=== PATIENT | female | born 1980 | race Caucasian/White ===

== ENCOUNTER 2017-05-19 20:11 | Emergency (ER) | payer OTHER ==
[~2017-05-19] VITALS: Ht 162.6 cm; Wt 100.0 kg
[2017-05-19] MEDS ORDERED: CIPR-249 PO (20:23)
[2017-05-19] MEDS ORDERED: METR1TAB66 PO (20:23)
[2017-05-19 21:27] LABS: CONTROL LINE UCG INT CTR LINE PRESENT
[2017-05-19 21:29] LABS: BASO # 0.1 10^3/uL (0.0-0.2); BASO % 0.7 % (0.0-1.0); EOS # 0.3 10^3/uL (0.0-0.50); EOS % 2.6 % (0.0-3.0); IMMATURE GRANULOCYTE % 0.5 % (0-0); LYMPH # 3.2 10^3/uL (1.5-4.5); LYMPH % 24.5 % (24.0-44.0); MEAN CORPUSCULAR HEMOGLOBIN 29.6 pg (27.0-33.0); MEAN CORPUSCULAR HGB CONC 34.2 g/dl (32.0-36.5); MEAN CORPUSCULAR VOLUME 86.6 fl (80.0-96.0); MONO # 0.6 10^3/uL (0.0-0.8); MONO % 4.5 % (0.0-5.0); NEUTROPHILS # 8.9 10^3/uL (1.8-7.7); NEUTROPHILS % 67.2 % (36.0-66.0); PLATELET COUNT, AUTOMATED 303 10^3/uL (150-450); RED CELL DISTRIBUTION WIDTH 13.3 % (11.5-14.5); WHITE BLOOD COUNT 13.2 10^3/uL (4.0-10.0)
[2017-05-19 21:54] LABS: ALBUMIN 3.8 GM/DL (3.2-5.2); ALBUMIN/GLOBULIN RATIO 0.97 (1.00-1.93); ALKALINE PHOSPHATASE 54 U/L (45-117); ALT/SGPT 24 U/L (12-78); ANION GAP 7 MEQ/L (8-16); AST/SGOT 17 U/L (15-37); BILIRUBIN,DIRECT < 0.1 MG/DL (0.0-0.2); BILIRUBIN,TOTAL 0.2 MG/DL (0.2-1.0); BLOOD UREA NITROGEN 9 MG/DL (7-18); CALCIUM LEVEL 8.7 MG/DL (8.5-10.1); CARBON DIOXIDE LEVEL 25 MEQ/L (21-32); CHLORIDE LEVEL 103 MEQ/L (98-107); CREATININE FOR GFR 0.89 MG/DL (0.55-1.02); GLOMERULAR FILTRATION RATE > 60.0 (>60); GLUCOSE, FASTING 97 MG/DL (70-105); POTASSIUM SERUM 3.8 MEQ/L (3.5-5.1); SODIUM LEVEL 135 MEQ/L (136-145); TOTAL PROTEIN 7.7 GM/DL (6.4-8.2)
[2017-05-19 22:20] VITALS: BP 131/85
--- NOTE | 2017-05-20 02:12 | REP ---
Clinical: Bloating and abdominal pain. Technique: Upright view of the lower chest/abdomen with supine views of the abdomen and pelvis. Findings: Upright view demonstrates no basilar atelectasis/opacity or free air below the diaphragm to suspect pneumoperitoneum. Supine and upright views of the abdomen and pelvis demonstrate nonspecific bowel gas pattern without obstruction or perforation. No organomegaly. No abnormal calcifications. Skeletal structures normal for age. The patient is status post tubal ligation with two Filshie clips identified in the pelvis. Impression: Nonspecific bowel gas pattern. Signed by Jayant Burdick MD 05/20/2017 02:03 A
== END 2017-05-19 22:28 | disposition home or self-care (01) ==
LOC: M ED 20:11
DX: K57.30 Diverticulosis of large intestine without perforation or abscess without bleeding (principal); K59.00 Constipation, unspecified

== ENCOUNTER → 2018-05-14 | Outpatient (REF) | payer OTHER | LOC: M SFHCLERA 11:01 | DX: J02.9 Acute pharyngitis, unspecified (principal) ==

== ENCOUNTER 2020-05-08 11:27 | Emergency (ER) | payer OTHER ==
[~2020-05-08] VITALS: Ht 165.1 cm; Wt 115.8 kg
[~2020-05-08 11:27] MED LIST: CIPR-249 PO; METR-265 PO
[2020-05-08] MEDS ORDERED: DOXY-350 PO (11:40)
[2020-05-08] MEDS ORDERED: ISOVUE-370 76% 100ML VIAL As Ordered ONE (12:27)
[2020-05-08 12:40] LABS: BASO # 0.1 10^3/uL (0.0-0.2); BASO % 0.6 % (0.0-1.0); EOS # 0.4 10^3/uL (0.0-0.5); EOS % 3.1 % (0.0-3.0); HEMATOCRIT 40.2 % (36.0-47.0); HEMOGLOBIN 13.3 g/dl (12.0-15.5); LYMPH # 2.3 10^3/uL (1.5-5.0); LYMPH % 19.2 % (24.0-44.0); MEAN CORPUSCULAR HEMOGLOBIN 27.9 pg (27.0-33.0); MEAN CORPUSCULAR HGB CONC 33.1 g/dl (32.0-36.5); MEAN CORPUSCULAR VOLUME 84.5 fl (80.0-96.0); MONO # 0.6 10^3/uL (0.0-0.8); MONO % 5.2 % (0.0-5.0); NEUTROPHILS # 8.5 10^3/uL (1.5-8.5); NEUTROPHILS % 71.3 % (36.0-66.0); PLATELET COUNT, AUTOMATED 255 10^3/uL (150-450); RED BLOOD COUNT 4.76 10^6/uL (4.00-5.40); WHITE BLOOD COUNT 11.9 10^3/uL (4.0-10.0)
[2020-05-08 13:08] LABS: ALBUMIN 3.8 GM/DL (3.2-5.2); ALT/SGPT 26 U/L (12-78); BILIRUBIN,DIRECT < 0.1 MG/DL (0.0-0.2); BILIRUBIN,TOTAL 0.3 MG/DL (0.2-1.0); LIPASE 138 U/L (73-393); TOTAL PROTEIN 7.5 GM/DL (6.4-8.2)
--- NOTE | 2020-05-08 13:37 | REPVR ---
PROCEDURE INFORMATION: Exam: CT Abdomen And Pelvis With Contrast Exam date and time: 05/08/2020 12:30 PM Age: 40 years old Clinical indication: Abdominal pain; Generalized; Additional info: Abd pain with HX of diverticulitis TECHNIQUE: Imaging protocol: Computed tomography of the abdomen and pelvis with intravenous contrast. Radiation optimization: All CT scans at this facility use at least one of these dose optimization techniques: automated exposure control; mA and/or kV adjustment per patient size (includes targeted exams where dose is matched to clinical indication); or iterative reconstruction. Contrast material: ISOVUE 370; Contrast volume: 100 ml; Contrast route: INTRAVENOUS (IV); COMPARISON: None FINDINGS: Lungs: Mild interstitial prominence . 3 mm left lower lobe nodule (series 401: Image 34). For patients at low risk (minimal or absent history of smoking and of other known risk factors), no routine follow-up is indicated. For patients at high risk (history of smoking or of other known risk factors), consider optional CT Chest at 12 months. (Reference: [place]) Liver: Fatty infiltration of the liver. 10 mm hepatic cyst. Gallbladder and bile ducts: No cholelithiasis or biliary ductal dilatation. Pancreas: No pancreatic mass or ductal dilatation. Spleen: Enlarged spleen measuring 13.9 cm in length. Adrenals: Unremarkable adrenals. Kidneys and ureters: Two adjacent 1 mm nonobstructing left renal calculi. 5 mm nodular hypodensity in the lower pole the left kidney which is too small to accurately characterize. Stomach and bowel: Mild wall thickening in the nondistended stomach. Prominent stool and scattered diverticula. Mild small bowel dilatation in the distal ileum. Wall thickening , infiltration of pericolonic fat, trace fluid, and fascial thickening about the splenic flexure and proximal descending colon, consistent with acute diverticulitis. Appendix: No acute appendicitis. Intraperitoneal space: No dependent free fluid in the pelvis. Vasculature: Normal caliber of the abdominal aorta. Lymph nodes: Subcentimeter lymph nodes. Urinary bladder: Mild wall thickening in the nondistended bladder. Reproductive: 2.9 cm fibroid in the inferior uterus. 2.3 cm left ovarian cyst. Surgical clips in the right adnexa and left anterolateral pelvis. Endocervical air. Bones/joints: Mild degenerative change . Soft tissues: Small fat containing umbilical hernia. IMPRESSION: 1. Wall thickening , infiltration of pericolonic fat, trace fluid, and fascial thickening about the splenic flexure and proximal descending colon, consistent with acute diverticulitis. 2. Two adjacent 1 mm nonobstructing left renal calculi. 3. Additional findings as described above. COMMENTS: Consistent with the [employer]'s Incidental Findings Committee white paper (J Am Lissette Radiol 2018): Any incidental renal lesion less than 1 cm or classified as too small to characterize, or any incidental cystic renal lesion characterized as simple-appearing, is likely benign. No follow-up imaging is recommended for these lesions per consensus recommendations based on imaging criteria. Electronically signed by: Ata Byrd On 05/08/2020 13:37:18 PM
[2020-05-08] MEDS ORDERED: CIPR-249 PO (13:47)
[2020-05-08] MEDS ORDERED: FLAG500T PO (13:47)
[2020-05-08 14:00] VITALS: BP 127/85
== END 2020-05-08 14:08 | disposition home or self-care (01) ==
LOC: M ED 11:27
DX: K57.30 Diverticulosis of large intestine without perforation or abscess without bleeding (principal); R91.1 Solitary pulmonary nodule; N20.0 Calculus of kidney; Z79.2 Long term (current) use of antibiotics; Z88.0 Allergy status to penicillin
CPT/HCPCS: 36415; 74177; 80047; 80076; 81001; 83690; 84702; 85025; 99284; Q9967

== ENCOUNTER → 2020-06-10 | Outpatient (CLI) | payer OTHER ==
[~2020-06-10] MED LIST changes: +DOXY-350 PO; +FLAG500T PO
--- NOTE | 2020-06-10 15:55 | REP ---
INDICATION: CHRONIC MAXILLARY SINUSITUS. COMPARISON: NONE. TECHNIQUE: Helical scanning is acquired and 2 mm axial images re-formatted. Coronal MPR images are generated and reviewed. FINDINGS: Frontal sinuses are clear. Ethmoid sinuses are clear bilaterally. Sphenoid aeration shows no evidence of mucosal thickening or opacification. Mastoid aeration is normal and symmetric. The maxillary sinuses are clear as well. Bony nasal septum bows somewhat to the right without a visible septal beak. Nasal turbinates soft tissues are unremarkable. Ostiomeatal complexes are patent bilaterally. Nasal ethmoid recesses are clear. There is no evidence of intraorbital or deep facial soft tissue lesion. The visualized intracranial structures are unremarkable. IMPRESSION: There is no CT evidence of paranasal sinus disease. There is rightward bowing of the nasal septum without septal beak. Otherwise negative. <Electronically signed by Gio Haas > 06/10/20 [id number]
== END ==
LOC: M RAD 14:58
PROVIDERS: ATTEND Otolaryngology
DX: J32.0 Chronic maxillary sinusitis (principal)

== ENCOUNTER 2020-09-05 11:18 | Day surgery (SDC) | payer OTHER ==
[~2020-09-05] VITALS: Ht 165.1 cm; Wt 116.3 kg
[~2020-09-05 11:18] MED LIST changes: +CLAR10CA3 PO; +FLUN25SP; +IPRA3SP; +NS 1,000 ML IV ONE; +OMEP10CASR PO; +TOLT2CAP4 PO; +VITMTA PO
--- OUTSIDE RECORDS SUMMARY | 2020-09-05 11:23 | CCD | Continuity of Care Document ---
Author Author Bekah APODACA M.D. Organization Unknown Address [address] [place] [address] Phone [phone] Care Team Providers Care Curbstone Setter Name Role Phone Lj Gan MD [facility] [phone] Problems Active Problems Provider Date Gastroesophageal reflux disease Kostas Apodaca M.D. Ons et: 08/16/2020 Social History Type Date Description Comments Sex Unknown ETOH Use Denies alcohol use Tobacco Use Start: Unknown End: Unknown Patient is a former smoker QUIT 2017 Allergies, Adverse Reactions, Alerts Active Allergies Reaction Severity Comments Date Penicillin V 08/16/2020 Medications Active Medications SIG Qnty Indications Ordering Provide r Date Sutab [id number] Tablets as directed 1box Kostas Apodaca M.D. 08/16/[address] 1 cap by mouth every morning Unknown Claritin 10mg Tablets Unknown Immunizations Description No Information Available Vital Signs Date Vital Result Comment 08/16/2020 11:45am Height 65 inches 5'5" Weight 258.00 lb BP Systolic 130 mmHg BP Diastolic 84 mmHg Heart Rate 78 /min BMI (Body Mass Index) 42.9 kg/m2 Weight 117.029 kg Body Temperature 97.9 F Results Description No Information Available Procedures Description No Information Available Medical Devices Description No Information Available Encounters Description No Information Available Assessments Date Code Description Provider 08/16/2020 K57.33 Diverticulitis of la rge intestine without perforation or abscess with bleeding Kostas Apodaca M.D. 08/16/2020 R12 Heartburn Kostas partida M.D. Plan of Treatment Future Appointment(s):* 09/05/2020 8:00 am - Kostas Apodaca M.D. at Main Office 08/16/2020 - Kostas Apodaca M.D.* K57.33 Diverticulitis of large intestine without perforation or abscess with bleeding* Comments:* 40 yo wf who presents for a h/o chronic heartburn, and recurrent bouts of diverticulitis x 5. Last bout was 05/24. She takes cipro + flagyl for 2 weeks. No c/o abdominal pain, weight loss, change in bowel habits, or rectal bleeding. No family h/o colon cancer. No h/o chest pain, or sob. Plan:1.Egd + colonoscopy.2. Informed consent. * R12 Heartburn* Comments:* Schedule EGD.Informed consent given. Functional Status Description No Information Available Mental Status Description No Information Available Referrals Refer to Reason for Referral Status Appt Date Kostas Apodaca M.D. Created [address] [place] [address] [phone]
--- OUTSIDE RECORDS SUMMARY | 2020-09-05 11:23 | CCD | Continuity of Care Document ---
Author Author Bekah APODACA M.D. Organization Unknown Address [address] [place] [id number] Phone [phone] Care Team Providers Care Pantry Cook Name Role Phone Lj Gan MD [facility] [phone] Problems Active Problems Provider Date Gastroesophageal reflux [...] Qnty Indications Ordering Provide r Date Sutab [id number] Tablets as directed 1box Kostas Apodaca M.D. [...] Medical Devices Description No Information Available Encounters Type Date Location Provider Dx Diagnosis Office Visit 08/16/2020 11:30a Main Office Kostas Apodaca M.D. K 57.33 Dvtrcli of lg int w/o perforation or abscess w bleeding R12 Heartburn Assessments Date Code Description Provider 08/16/2020 K57.33 [...] Date Kostas Apodaca M.D. Created [address] [place] [address] [phone]
--- OUTSIDE RECORDS SUMMARY | 2020-09-05 11:23 | CCD ---
Author Author [facility] Organization [facility] Address Unknown Phone Unavailable Care Team Providers Care Office Supervisor Name Role Phone Casimiro Apodaca MD Unavailable Unavailable Casimiro Apodaca MD Unavailable Unavailable Casimiro Apodaca MD Unavailable Unavailable Casimiro Apodaca MD Unavailable Unavailable Casimiro Apodaca MD Unavailable Unavailable Casimiro Apodaca MD Unavailable Unavailable Casimiro Apodaca MD Unavailable Unavailable Casimiro Apodaca MD Unavailable Unavailable Casimiro Apodaca MD Unavailable Unavailable Casimiro Apodaca MD Unavailable Unavailable Casimiro Apodaca MD Unavailable Unavailable Casimiro Apodaca MD Unavailable Unavailable Casimiro Apodaca MD Unavailable Unavailable Casimiro Apodaca MD Unavailable Unavailable Casimiro Apodaca MD Unavailable Unavailable Casimiro Apodaca MD Unavailable Unavailable Casimiro Apodaca MD Unavailable Unavailable Casimiro Apodaca MD Unavailable Unavailable Casimiro Apodaca MD Unavailable Unavailable Casimiro Apodaca MD Unavailable Unavailable Casimiro Apodaca MD Unavailable Unavailable Casimiro Apodaca MD Unavailable Unavailable Casimiro Apodaca MD Unavailable Unavailable Casimiro Apodaca MD Unavailable Unavailable Casimiro Apodaca MD Unavailable Unavailable Casimiro Apodaca MD Unavailable Unavailable Casimiro Apodaca MD Unavailable Unavailable Casimiro Apodaca MD Unavailable Unavailable Casimiro Apodaca MD Unavailable Unavailable Casimiro Apodaca MD Unavailable Unavailable Casimiro Apodaca MD Unavailable Unavailable Casimiro Apodaca MD Unavailable Unavailable Casimiro Apodaca MD Unavailable Unavailable Constanza S Kostas GRAY Unavailable Unavailable Constanza S Kostas GRAY Unavailable Unavailable Constanza, S Kostas MD Unavailable Unavailable Constanza, S Kostas MD Unavailable Unavailable Constanza, S Kostas MD Unavailable Unavailable Constanza, S Kostas MD Unavailable Unavailable Constanza, S Kostas MD Unavailable Unavailable Constnaza, S Kostas MD Unavailable Unavailable Constanza, S Kostas MD Unavailable Unavailable Constanza, S Kostas MD Unavailable Unavailable Constanza, S Kostas MD Unavailable Unavailable Constanza, S Kostas MD Unavailable Unavailable Constanza, S Kostas MD Unavailable Unavailable Constanza, S Kostas MD Unavailable Unavailable Constanza S Kostas MD Unavailable Unavailable Dotty MACHUCA MD Unavailable Unavailable Dotty MACHUCA MD Unavailable Unavailable Dotty MACHUCA MD Unavailable Unavailable Dotty MACHUCA MD Unavailable Unavailable Dotty MACHUCA MD Unavailable Unavailable Dotty MACHUCA MD Unavailable Unavailable Dotty MACHUCA MD Unavailable Unavailable Dotty MACHUCA MD Unavailable Unavailable Dotty MACHUCA MD Unavailable Unavailable Dotty MACHUCA MD Unavailable Unavailable Dotty MACHUCA MD Unavailable Unavailable Dotty MACHUCA MD Unavailable Unavailable Dotty MACHUCA MD Unavailable Unavailable Dotty MACHUCA MD Unavailable Unavailable Dotty MACHUCA MD Unavailable Unavailable Dotty MACHUCA MD Unavailable Unavailable Dotty MACHUCA MD Unavailable Unavailable Dotty MACHUCA MD Unavailable Unavailable Dotty MACHUCA MD Unavailable Unavailable Dotty MACHUCA MD Unavailable Unavailable Dotty MACHUCA MD Unavailable Unavailable Dotty MACHUCA MD Unavailable Unavailable Dotty MACHUCA MD Unavailable Unavailable Dotty MACHUCA MD Unavailable Unavailable Dotty MACHUCA MD Unavailable Unavailable Dotty MACHUCA MD Unavailable Unavailable Dotty MACHUCA MD Unavailable Unavailable Dotty MACHUCA MD Unavailable Unavailable Dotty MACHUCA MD Unavailable Unavailable Dotty MACHUCA MD Unavailable Unavailable Dotty MACHUCA MD Unavailable Unavailable Dotty MACHUCA MD Unavailable Unavailable Dotty MACHUCA MD Unavailable Unavailable Dotty MACHUCA MD Unavailable Unavailable Dotty MACHUCA MD Unavailable Unavailable Re-disclosure Warning The records that you are about to access may contain information from federally-assisted alcohol or drug abuse programs. If such information is present, then the following federally mandated warning applies: This information has been disclosed to you from records protected by federal confidentiality rules (42 CFR part 2). The federal rules prohibit you from making any further disclosure of this information unless further disclosure is expressly permitted by the written consent of the person to whom it pertains or as otherwise permitted by 42 CFR part 2. A general authorization for the release of medical or other information is NOT sufficient for this purpose. The Federal rules restrict any use of the information to criminally investigate or prosecute any alcohol or drug abuse patient.The records that you are about to access may contain highly sensitive health information, the redisclosure of which is protected by Article 27-F of the [facility] Public Health law. If you continue you may have access to information: Regarding HIV / AIDS; Provided by facilities licensed or operated by the [facility] Office of Mental Health; or Provided by the [facility] Office for People With Developmental Disabilities. If such information is present, then the following [facility] mandated warning applies: This information has been disclosed to you from confidential records which are protected by state law. State law prohibits you from making any further disclosure of this information without the specific written consent of the person to whom it pertains, or as otherwise permitted by law. Any unauthorized further disclosure in violation of state law may result in a fine or group home sentence or both. A general authorization for the release of medical or other information is NOT sufficient authorization for further disc losure. Allergies and Adverse Reactions Type Description Substance Reaction Status Data Source(s ) Drug Allergy Drug Allergy NKDA [facility] ([facility], ) Encounters Encounter Providers Location Date Indications Data Source(s ) Outpatient Attender: Kostas Apodaca MD Main Office 08/16/2020 10:30:00 AM EST [facility] ([facility]) Outpatient Attender: YARA Machuca/Jasmin/Mina/Thelma alford 06/06/2020 08:00:00 AM EST [facility] Medications Medication Brand Name Start Date Product Form Dose Route Admi nistrative Instructions Pharmacy Instructions Status Indications Reaction Description Data Source(s) Sutab Sutab 08/16/2020 12:00:00 AM EST active [facility] ([facility]) Mometasone Furoate Mometasone Furoate 07/11/2020 12:00:00 AM EST active [facility] ([facility], ) Fluticasone Propionate Fluticasone Propionate 06/06/2020 12:00:[address] active [facility] ([facility], ) Sodium Chloride 0.111 MEQ/ML Nasal Solution Saline Nasal Spr ay 06/06/2020 12:00:00 AM EST active M [facility] ([facility], ) Insurance Providers Payer name Policy type / Coverage type Policy ID Covered democrat ID Covered democrat's relationship to saavedra Policy Saavedra Plan Information [facility] HUMAN [id number] [facility] [id number] [employer] [facility] REG O [id number] S [id number] [facility] COMMUNITY PLAN [facility] [id number] SP [id number] [facility] [id number] [facility] d [id number] ANSI-Medicaid [id number] [facility] COMMUNITY PLAN [facility] [id number] SP [id number] [place] [id number] CLAIMS -O/P [id number] 01 [id number] Problems, Conditions, and Diagnoses Code Display Name Description Problem Type Effective Dates Data Source(s) 405036812 Gastroesophageal reflux disease Gastroesophageal reflux disease Problem 08/16/2020 12:00:00 AM EST [facility] Surgeries/Procedures Procedure Description Date Indications Data Source(s) Endoscopy Nasal Diagnostic 06/06/2020 12:00:00 AM EST [facility] ([facility], ) Results ID Date Data Source [id number] 08/31/2020 09:31:00 AM EST [facility] Name Value Range Interpretation Code Description Data Corina rce(s) Supporting Document(s) SARS coronavirus 2 RNA Not Detected [facility] [place] This lab was ordered by [facility] Laboratory and reported by [facility]. ID Date Data Source [id number] 08/18/2020 12:00:00 AM EST [facility] Jaimee Underwood Patient Name: [id number] [address] Date of :1980HARRY [place] [address]- Date of Exam: 1PH#: Fax: [phone] EXAM: MAMMO SCREENING WITH CADCLINICAL INFORMATION: Screening.Based on the personal and family history information your patient suppliedat the time of imaging, her lifetime risk of breast cancer estimated by theTyrer-Cuzick model is 8.5%. Given that this patient has less than 20% TCrisk score, no further medical management is currently recommended at thistime.Your patient's personal and/or family history of cancer submitted at thetime of imaging is suggestive of a hereditary cancer syndrome. She meetsthe criteria for genetic testing established by National ComprehensiveCancer Network and [place] [employer] guidelines. She should pursue arisk assessment with a hereditary cancer specialist which may includetesting based on these criteria. The benefits and limitations of genetictesting would be discussed, including potential changes to medicalmanagement based on the results. Your patient declined myRisk genetictesting at this time.Digital screening (2D only) mammography was performed bilaterally in the CCand MLO projections.Today's examination is the initial screening examination.By history, the patient has no complaints of a palpable breast abnormalityor other significant breast complaints.The patient states last clinical breast exam was in October of 2019.The breasts are symmetric in size and shape. There are no masses. Thereis no internal architectural distortion. There are no suspiciousmicrocalcific clusters. Skin thickening or nipple retraction is notpresent.The Volpara volumetric breast density category is B, there are scatteredareas of fibroglandular density.IMPRESSION:BI-RADS Category 1 - Negative Mammogram. There is no evidence of malignantalteration of the breasts. Followup examination recommended in one year.This mammogram was read with the assistance of [employer], an FDAapproved computer aided detection system for mammography.Negative x-ray reports should not delay surgical consultation if a dominantor clinically suspicious mass is present.Not all breast cancers can be identified by mammography. Therefore, werecommend that you continue to perform regular breast self-examination andphysical examination and then promptly contact your physician of anyconcerns or changes.Adenosis and dense breasts may obscure an underlying neoplasm.ELIU Castano/Travis you for referring URIAH MCNALLY to our office. Electronically Signed - JOSELINE SHEARER DO 08/18/20 13:21 Name Value Range Interpretation Code Description Data Corina rce(s) Supporting Document(s) Procedure Vital Signs ID Date Data Source UNK Name Value Range Interpretation Code Description Data Source(s) Body temperature 97.9 [degF] 97.9 [degF] [facility] ([facility]) Body weight 117.029 kg 117.029 kg [facility] Body mass index (BMI) [Ratio] 42.9 kg/m2 42.9 k g/m2 [facility] ([facility]) Heart rate 78 /min 78 /min [facility]) Diastolic blood pressure 84 mm[Hg] 84 mm[Hg] [facility] ([facility]) Systolic blood pressure 130 mm[Hg] 130 mm[Hg] M [facility] ([facility]) Body weight 258.00 [lb_av] 258.00 [lb_av] [facility] T ([facility]) Body height 65 [in_i] 65 [in_i] [facility] ([facility]) 5'5" Body surface area Derived from formula 2.14 m2 2.14 m2 [facility] ([facility]) Body weight 108.864 kg 108.864 kg [facility] ([facility]) I[place]er body weight 125 [lb_av] 125 [lb_av] [facility] T ([facility]) Body mass index (BMI) [Ratio] 39.9 kg/m2 39.9 k g/m2 [facility] ([facility]) Body weight 240.00 [lb_av] 240.00 [lb_av] [facility] T ([facility]) Body height 65 [in_i] 65 [in_i] [facility] ([facility]) 5'5" Body surface area Derived from formula 2.26 m2 2.26 m2 [facility] ([facility]) Body weight 124.740 kg 124.740 kg [facility] ([facility]) [place] body weight 125 [lb_av] 125 [lb_av] [facility] T ([facility]) Body mass index (BMI) [Ratio] 45.8 kg/m2 45.8 k g/m2 [facility] ([facility]) Body weight 275.00 [lb_av] 275.00 [lb_av] [facility] Body height 65 [in_i] 65 [in_i] [facility] ([facility]) "
--- OUTSIDE RECORDS SUMMARY | 2020-09-05 11:23 | CCD | Continuity of Care Document ---
Author Author Bekah MACHUCA MD AN Organization Unknown Address [address] [address] Phone [phone] Care Team Providers Care Digital Print Operator Name Role Phone Tom Rodriguez AUTM [phone] Russell Mello M.D. AUTM Ganesh Chaves D.O. AUTM [phone] Problems Description No Information Available Social History Type Date Description Comments Sex Unknown ETOH Use Denies alcohol use Tobacco Use Start: Unknown Non Smoker Recreational Drug Use Denies Drug Use Allergies, Adverse Reactions, Alerts Active Allergies Reaction Severity Comments Date Penicillin V 06/06/2020 Inactive Allergies NKDA 06/06/2020 Medications Active Medications SIG Qnty Indications Ordering Provide r Date Mometasone Furoate 50mcg/Act Suspe nsion 2 sprays per nostril daily 51gm J32.0 Jorge Machuca MD 020 Fluticasone Propionate 50mcg/Act Suspension 2 sprays to each nostril daily 48gm J32.0 Jorge schmidt MD 06/06/2020 Saline Nasal [place] 0.65% Solution 2 sprays to each nostril daily and prn 264ml J32.0 Jorge Machuca MD Vicks Dayquil/Nyquil Severe+ Vapocool TBPK qam Unknown Immunizations Description No Information Available Vital Signs Date Vital Result Comment 07/11/2020 2:50pm Height 65 inches 5'5" Weight 240.00 lb BMI (Body Mass Index) 39.9 kg/m2 [place] Body Weight 125 lb Weight 108.864 kg BSA (Body Surface Area) 2.14 m2 06/06/2020 9:17am Height 65 inches 5'5" Weight 275.00 lb BMI (Body Mass Index) 45.8 kg/m2 [place] Body Weight 125 lb Weight 124.740 kg BSA (Body Surface Area) 2.26 m2 Results Description No Information Available Procedures Date Code Description Status 06/06/2020 38992 Endoscopy Nasal Diagnostic Compl eted Medical Devices Description No Information Available Encounters Type Date Location Provider Dx Diagnosis Office Visit 06/06/2020 9:00a [facility] Jorge Machuca MD J31.0 Chronic rhinitis J34.2 Deviated nasal septum J32.0 Chronic maxillary sinusitis R51.9 Headache, unspecified R09.82 Postnasal drip R05 Cough Assessments Date Code Description Provider 07/11/2020 J34.2 Deviated nasal septum Jorge schmidt MD 07/11/2020 J32.0 Chronic maxillary sinusitis Jorge Machuca MD 07/11/2020 J31.0 Chronic rhinitis Jorge Machuca MD 07/11/2020 R09.82 Postnasal drip Jorge Machuca MD 07/11/2020 R05 Cough Jorge Machuca MD 06/06/2020 J31.0 Chronic rhinitis Jorge Machuca MD 06/06/2020 J34.2 Deviated nasal septum Jorge schmidt MD 06/06/2020 J32.0 Chronic maxillary sinusitis Jorge Machuca MD 06/06/2020 R51.9 Headache, unspecified Jorge schmidt MD 06/06/2020 R09.82 Postnasal drip Jorge Machuca MD 06/06/2020 R05 Cough Jorge Machuca MD Plan of Treatment 07/11/2020 - Jorge Machuca MD* J34.2 Deviated nasal septum * J32.0 Chronic maxillary sinusitis* New Medication:* Mometasone Furoate 50 mcg/Act - 2 sprays per nostril daily * J31.0 Chronic rhinitis * R09.82 Postnasal drip * R05 Cough Functional Status Description No Information Available Mental Status Description No Information Available Referrals Refer to Dr Reason for Referral Status Appt Jorge Foreman MD Created [address] [place] [address] [phone] Jogre Machuca MD Closed /0000 [address] [address] [phone] Jorge Machuca MD [employer]PERATOR SINUSITIS OFFI CE CONSULT NEW OR ESTAB 1 04/26/2020 - 10/23/20 OFFICE OUTPATIENT VISIT ESTAB 3 04/26/20 04/26/21 Scheduled 06/06/[address] [address] [phone]
[2020-09-05] MEDS ORDERED: fentaNYL 100 MCG/2 ML INJECTION (J3010) As Ordered ONE (11:55)
[2020-09-05] MEDS ORDERED: propofoL 500 MG/50 ML VIAL As Ordered ONE (11:55)
[2020-09-05] MEDS ORDERED: propofoL 200 MG/20 ML VIAL As Ordered ONE (11:55)
[2020-09-05] MEDS ORDERED: LIDOCAINE 2% 100MG/5ML SDV (FOR ANES.) As Ordered ONE (11:56)
--- NOTE | 2020-09-05 12:40 | ROOR ---
Patient Name: Bekah Harrington Procedure Date: 09/05/2020 12:26 PM Date of : 1980 Age: 40 Room: [facility] Gender: Female Note Status: Finalized Procedure: Upper Endoscopy + Biopsies Indications: Heartburn, Exclusion of Chase's esophagus Providers: Kostas Apodaca MD Referring MD: ODESSA SAXENA MD Requesting Provider: Medicines: Monitored Anesthesia Care Complications: No immediate complications. Procedure: Pre-Anesthesia Assessment: - The heart rate, respiratory rate, oxygen saturations, blood pressure, adequacy of pulmonary ventilation, and response to care were monitored throughout the procedure. The Endoscope was introduced through the mouth, and advanced to the second part of duodenum. The upper GI endoscopy was accomplished without difficulty. The patient tolerated the procedure well. Findings: The Z-line was irregular and was found 40 cm from the incisors. Multiple biopsies were obtained with cold forceps for evaluation to rule out Chase's Esophagus randomly at the gastroesophageal junction. No other significant abnormalities were identified in a careful examination of the stomach. The exam of the duodenum was otherwise normal. Impression: - Z-line irregular, 40 cm from the incisors. - Multiple biopsies were obtained at the gastroesophageal junction. - The examination was otherwise normal. Recommendation: - Patient has a contact number available for emergencies. The signs and symptoms of potential delayed complications were discussed with the patient. Return to normal activities tomorrow. Written discharge instructions were provided to the patient. - High fiber diet. - Discharge patient to home. - Follow an antireflux regimen. - Continue present medications. - Await pathology results. - Telephone GI clinic for pathology results in 1 week. - Repeat upper endoscopy for surveillance based on pathology results. - The findings and recommendations were discussed with the patient. Procedure Code(s): --- Professional --- 54538, Esophagogastroduodenoscopy, flexible, transoral; with biopsy, single or multiple Diagnosis Code(s): --- Professional --- K22.8, Other specified diseases of esophagus R12, Heartburn CPT copyright 2019 [employer]. All rights reserved. The codes documented in this report are preliminary and upon devops review may be revised to meet current compliance requirements. Kostas Apodaca MD Kostas Apodaca MD 09/05/2020 12:40:07 PM Electronically signed by Kostas Apodaca MD Number of Addenda: 0 Note Initiated On: 09/05/2020 12:26 PM Estimated Blood Loss: Estimated blood loss: none.
--- NOTE | 2020-09-05 12:53 | ROOR ---
Patient Name: Bekah Harrington Procedure Date: 09/05/2020 12:27 PM Date of : 1980 Age: 40 Room: [facility] Gender: Female Note Status: Finalized Procedure: Total Colonoscopy to Cecum + ileoscopy Indications: Follow-up of diverticulitis Providers: Kostas Apodaca MD Referring MD: ODESSA SAXENA MD Requesting Provider: Medicines: Monitored Anesthesia Care Complications: No immediate complications. Procedure: Pre-Anesthesia Assessment: - The heart rate, respiratory rate, oxygen saturations, blood pressure, adequacy of pulmonary ventilation, and response to care were monitored throughout the procedure. The Colonoscope was introduced through the anus and advanced to the terminal ileum, with identification of the appendiceal orifice and IC valve. The colonoscopy was performed without difficulty. The patient tolerated the procedure well. The quality of the bowel preparation was excellent. Findings: The perianal and digital rectal examinations were normal. Non-bleeding internal hemorrhoids were found during retroflexion. The hemorrhoids were small and Grade I (internal hemorrhoids that do not prolapse). Multiple small and large-mouthed diverticula were found in the recto-sigmoid colon, sigmoid colon and descending colon. The exam was otherwise without abnormality on direct and retroflexion views. The terminal ileum appeared normal. The exam was otherwise without abnormality. Impression: - Non-bleeding internal hemorrhoids. - Diverticulosis in the recto-sigmoid colon, in the sigmoid colon and in the descending colon. - The examination was otherwise normal on direct and retroflexion views. - The examined portion of the ileum was normal. - The examination was otherwise normal. - No specimens collected. - The exam was otherwise normal to the cecum. Recommendation: - Patient has a contact number available for emergencies. The signs and symptoms of potential delayed complications were discussed with the patient. Return to normal activities tomorrow. Written discharge instructions were provided to the patient. - High fiber diet. - Discharge patient to home. - Continue present medications. - Repeat colonoscopy at age 50 for screening purposes. - Return to referring physician. - The findings and recommendations were discussed with the patient. Procedure Code(s): --- Professional --- 17246, Colonoscopy, flexible; diagnostic, including collection of specimen(s) by brushing or washing, when performed (separate procedure) Diagnosis Code(s): --- Professional --- K64.0, First degree hemorrhoids K57.32, Diverticulitis of large intestine without perforation or abscess without bleeding K57.30, Diverticulosis of large intestine without perforation or abscess without bleeding CPT copyright 2019 [employer]. All rights reserved. The codes documented in this report are preliminary and upon embedded firmware developer review may be revised to meet current compliance requirements. Kostas Apodaca MD Kostas Apodaca MD 09/05/2020 12:52:56 PM Electronically signed by Kostas Apodaca MD Number of Addenda: 0 Note Initiated On: 09/05/2020 12:27 PM Estimated Blood Loss: Estimated blood loss: none.
[2020-09-05 13:20] VITALS: BP 136/78
== END 2020-09-05 13:29 | disposition home or self-care (01) ==
LOC: M OPP 11:18
PROVIDERS: ATTEND Internal Medicine Gastroenterology
DX: K57.32 Diverticulitis of large intestine without perforation or abscess without bleeding (principal); R12 Heartburn; K64.0 First degree hemorrhoids; K57.30 Diverticulosis of large intestine without perforation or abscess without bleeding; D13.0 Benign neoplasm of esophagus; K22.8 Other specified diseases of esophagus; Z87.891 Personal history of nicotine dependence; Z88.0 Allergy status to penicillin; Z79.899 Other long term (current) drug therapy
CPT/HCPCS: 43239; 45378; 88305; J3010

== ENCOUNTER → 2020-10-13 | Outpatient (CLI) | payer OTHER ==
[~2020-10-13] MED LIST changes: -NS 1,000 ML IV ONE
--- NOTE | 2020-10-13 09:32 | PFTRPT ---
Height: 65.00 Inches Weight: 260.00 Lbs BSA: 2.21 Diagnosis: R05 DATE: 10/13/2020 ORDERING PHYSICIAN: Eula Jones NP Pre and post bronchodilator studies have excellent technical quality. Forced vital capacity is normal. FEV1 is in proportion. Obstructive index is therefore normal. Expiratory limit of the flow-volume loop is normal. No significant bronchodilator response is identified. Total lung capacity is normal. Residual volume is in proportion. Diffusing capacity is normal. Hemoglobin is normal at 13.8. Airway resistance and conductance are normal. IMPRESSION: Normal study. MTDD
== END ==
LOC: M CARPUL 09:01
PROVIDERS: ATTEND Nurse Practitioner Adult Health
DX: R05 Cough (principal)

== ENCOUNTER → 2020-10-18 | Outpatient (CLI) | payer OTHER ==
[~2020-10-18] MED LIST changes: +METHACHOLINE KIT (J7674) INH ONE
--- NOTE | 2020-10-18 08:47 | PFTRPT ---
Site: [facility], [address] [place], [address] ID: [id number] Name: URIAH MCNALLY Visit Date: 10/18/2020 Second ID: [id number] Referring Doctor: Eula Lawson Reviewing Doctor: Ghassan Cline MD Irrigation Flume Layer: Huong BLEVINS RRT Age: 40 : 1980 Sex: Female Race: Height: 65.00 Inches Weight: 260.00 Lbs BSA: 2.21 Order IDs: [id number] Requested Test(s): <RESP-PFT.METH CHAL> Diagnosis: R05 of albuterol for post bronchodilator. Review Status: Not Reviewed Pre-Bronch Post-Bronch Pred Actual %Pred Actual %Chng SPIROMETRY FVC (L) 3.81 3.77 98 3.72 -1 FEV1 (L) 3.10 3.10 99 3.05 -1 FEV1/FVC (%) 82 82 100 82 FEF 25% (L/sec) 5.55 6.27 113 6.29 FEF 50% (L/sec) 4.20 4.09 97 3.97 -2 FEF 75% (L/sec) 1.66 1.32 79 1.19 -9 FEF 25-75% (L/sec) 3.17 3.19 100 3.10 -2 FEF Max (L/sec) 7.12 6.44 90 6.30 -2 FIVC (L) 3.98 3.89 -2 FIF 50% (L/sec) 4.34 5.54 127 4.52 -18 FIF Max (L/sec) 5.54 4.70 -15 Expiratory Time (sec) 6.62 7.07 6 Back Extrap Vol (L) 0.14 0.11 -20 Time To FEFmax (sec) 0.120 0.138 15
== END ==
LOC: M CARPUL 07:43
PROVIDERS: ATTEND Nurse Practitioner Adult Health
DX: R05 Cough (principal)
CPT/HCPCS: 94070; J7674

== ENCOUNTER 2021-07-01 19:34 | Emergency (ER) | payer OTHER ==
[~2021-07-01] VITALS: Ht 162.6 cm; Wt 120.7 kg
[~2021-07-01 19:34] MED LIST changes: -METHACHOLINE KIT (J7674) INH ONE
[2021-07-01 19:36] VITALS: BP 174/107
[2021-07-01] MEDS ORDERED: EXCETAB33 PO (19:43)
== END 2021-07-02 03:55 | disposition left against medical advice (07) ==
LOC: M ED 19:34
DX: Z53.29 Procedure and treatment not carried out because of patient's decision for other reasons (principal)

== ENCOUNTER 2021-07-07 08:00 | Outpatient (CLI) | payer OTHER ==
[~2021-07-07] VITALS: Ht 165.1 cm; Wt 118.0 kg
[~2021-07-07 08:00] MED LIST changes: +ALBUTEROL 90 MCG/ACT 8GM HFA INHALER INH PRN; +ALBUTEROL SULFATE 2.5 MG/0.5 ML INH NEB SOLN INH PRN; +EPINEPHrine INJ 1 MG/ML 1ML AMP IM PRN; +EXCETAB33 PO; +NS 1,000 ML IV SCH; +diphenhydrAMINE 50MG/ML VIAL (J1200) IV PRN; +methylPREDNISolone 125MG 2ML VIAL IV PRN
[2021-07-07 08:37] VITALS: BP 139/84
[2021-07-07] MEDS ORDERED: CASIRIVIMAB/IMDEVIMAB 1,200 MG in NS 250 ML IV ONE (09:00)
[2021-07-07] MEDS ORDERED: ACETAMINOPHEN TAB 650MG DOSE (2X325MG) PO ONE (09:00)
[2021-07-07 09:07] VITALS: BP 140/80
[2021-07-07 09:37] VITALS: BP 132/84
[2021-07-07 10:37] VITALS: BP 160/77
== END 2021-07-07 10:37 | disposition home or self-care (01) ==
LOC: M OPCLI4PR 08:00
PROVIDERS: ATTEND Family Medicine
DX: U07.1 COVID-19 (principal); Z88.0 Allergy status to penicillin

== ENCOUNTER → 2021-08-01 | Outpatient (REF) ==
[~2021-08-01] MED LIST changes: -ALBUTEROL 90 MCG/ACT 8GM HFA INHALER INH PRN; -ALBUTEROL SULFATE 2.5 MG/0.5 ML INH NEB SOLN INH PRN; -EPINEPHrine INJ 1 MG/ML 1ML AMP IM PRN; -NS 1,000 ML IV SCH; -diphenhydrAMINE 50MG/ML VIAL (J1200) IV PRN; -methylPREDNISolone 125MG 2ML VIAL IV PRN
== END ==
LOC: M LAB 09:07
PROVIDERS: ATTEND Nurse Practitioner Family
DX: Z02.1 Encounter for pre-employment examination (principal)

== ENCOUNTER 2021-11-08 12:15 | Emergency (ER) | payer OTHER ==
[~2021-11-08] VITALS: Ht 162.6 cm; Wt 109.1 kg
[2021-11-08] MEDS ORDERED: LEVOTAB10 (12:23)
[2021-11-08] MEDS ORDERED: PROAAER10 (12:23)
[2021-11-08] MEDS ORDERED: AMOX875T2 (12:23)
[2021-11-08] MEDS ORDERED: AZEL1SPR3 (12:23)
[2021-11-08] MEDS ORDERED: ADVA230A (12:23)
[2021-11-08] MEDS ORDERED: LISI5TAB11 (12:23)
[2021-11-08] MEDS ORDERED: NEOM1SOL13 (12:23)
[2021-11-08] MEDS ORDERED: IBUP80TA (12:23)
[2021-11-08] MEDS ORDERED: OLOP5DRO16 (12:23)
[2021-11-08] MEDS ORDERED: CIPR7.5D5 OTIC (15:24)
[2021-11-08] MEDS ORDERED: NASA10TA2 PO (15:28)
[2021-11-08 15:46] VITALS: BP 167/102
== END 2021-11-08 15:47 | disposition home or self-care (01) ==
LOC: M ED 12:15
DX: H60.91 Unspecified otitis externa, right ear (principal); J30.89 Other allergic rhinitis; Z79.899 Other long term (current) drug therapy; Z79.82 Long term (current) use of aspirin

== ENCOUNTER 2022-03-28 22:19 | Emergency (ER) | payer OTHER ==
[~2022-03-28] VITALS: Ht 162.6 cm; Wt 117.0 kg
[~2022-03-28 22:19] MED LIST changes: +ADVA230A; +AMOX875T2; +AZEL1SPR3; +CIPR7.5D5 OTIC; +EXCETAB32 PO; -EXCETAB33 PO; +IBUP80TA; +LEVOTAB10; +LISI5TAB11; +NASA10TA2 PO; +NEOM1SOL13; +OLOP5DRO16; +PROAAER10
[2022-03-28 22:21] VITALS: BP 150/110
[2022-03-28] MEDS ORDERED: FLON1SPR NARES (22:29)
== END 2022-03-29 00:23 | disposition left against medical advice (07) ==
LOC: M ED 22:19
DX: Z53.29 Procedure and treatment not carried out because of patient's decision for other reasons (principal)

== ENCOUNTER → 2022-09-20 | Outpatient (CLI) | payer OTHER ==
[~2022-09-20] MED LIST changes: -DOXY-350 PO; +DOXY-444 PO; +FLON1SPR NARES
== END ==
LOC: M WHC 09:09
PROVIDERS: ATTEND Family Medicine
DX: Z12.31 Encounter for screening mammogram for malignant neoplasm of breast (principal)

== ENCOUNTER → 2024-01-29 | Outpatient (CLI) | payer OTHER ==
[~2024-01-29] MED LIST changes: +DOXY-440 PO; -DOXY-444 PO; -OLOP5DRO16; +OLOP5DRO17
== END ==
LOC: M PLAIMG 11:18
PROVIDERS: ATTEND Physician Assistant Medical
DX: J32.0 Chronic maxillary sinusitis (principal)

== ENCOUNTER 2024-05-14 09:14 | Day surgery (SDC) | payer OTHER ==
[~2024-05-14] VITALS: Ht 165.1 cm; Wt 112.3 kg
[~2024-05-14 09:14] MED LIST changes: +CETI-24 PO; +FLUT12AE3; +JANU50TA25 PO; +LISI20TA33 PO; +MONT10TA97 PO; +OMEP-173 PO; +PROA1AER2 IN; +ROSU10TA61 PO
[2024-05-14] MEDS: LR 1,000 ML IV SCH (10:46)
[2024-05-14] MEDS ORDERED: propofoL 200 MG/20 ML VIAL As Ordered ONE (10:49)
[2024-05-14] MEDS ORDERED: LIDOCAINE 2% 100MG/5ML SDV (FOR ANES.) As Ordered ONE (10:49)
[2024-05-14] MEDS ORDERED: ACETAMINOPHEN 1000MG 100ML IV BAG As Ordered ONE (10:49)
[2024-05-14] MEDS ORDERED: ONDANSETRON 4MG 2ML VIAL As Ordered ONE (10:49)
[2024-05-14] MEDS ORDERED: ROCURONIUM BROMIDE 50MG/5ML VIAL As Ordered ONE (10:49)
[2024-05-14] MEDS ORDERED: MIDAZOLAM INJ 2MG/2ML VIAL As Ordered ONE (10:52)
[2024-05-14] MEDS ORDERED: fentaNYL 100 MCG/2 ML INJECTION As Ordered ONE (10:52)
[2024-05-14] MEDS ORDERED: LABETALOL 100MG/20ML VIAL As Ordered ONE (12:32)
[2024-05-14] MEDS ORDERED: SUGAMMADEX SODIUM 500 MG/5 ML VIAL (BRIDION) As Ordered ONE (12:37)
[2024-05-14] MEDS: LIDOCAINE W/EPINEPHRINE 1% 20ML VIAL As Ordered ONE (12:40)
[2024-05-14] MEDS: EPINEPHrine 1MG/ML INJ 30ML MD-VIAL As Ordered ONE (12:42)
[2024-05-14] MEDS: METHYLENE BLUE 0.5% (5MG/ML) 10 ML AMP (PROVAYBLUE) As Ordered ONE (12:42)
[2024-05-14] MEDS: SODIUM CHLORIDE 0.9% NASAL GEL 15GM (AYR) As Ordered ONE (12:43)
[2024-05-14] MEDS ORDERED: dexmedeTOMIDine (4MCG/ML)200MCG/50ML BTL (PRECEDEX) As Ordered ONE (13:02)
[2024-05-14] MEDS ORDERED: fentaNYL 100 MCG/2 ML INJECTION IV PRN (13:15)
[2024-05-14] MEDS ORDERED: LR 1,000 ML IV SCH (13:15)
[2024-05-14] MEDS: oxyCODONE 5MG TAB PO PRN (13:47)
[2024-05-14] MEDS: ONDANSETRON 4MG 2ML VIAL IV PRN (13:47)
[2024-05-14] MEDS: HYDROMORPHONE HCL 0.5 MG/ 0.5 ML SYRINGE IV PRN (13:48)
[2024-05-14] MEDS: METOCLOPRAMIDE INJ 10MG/2ML VIAL IV ONE (14:24)
[2024-05-14 15:15] VITALS: BP 129/80; TEMP 98.2; O2SAT 99
== END 2024-05-14 15:28 | disposition home or self-care (01) ==
LOC: M SDC 09:14
PROVIDERS: ATTEND Otolaryngology
DX: J34.2 Deviated nasal septum (principal); J34.3 Hypertrophy of nasal turbinates; E11.9 Type 2 diabetes mellitus without complications; J30.89 Other allergic rhinitis; Z79.899 Other long term (current) drug therapy; Z86.16 Personal history of COVID-19
CPT/HCPCS: 30520; 30801; 88300; J0131; J0171; J1100; J1171; J1920; J2250; J2405; J2765; J3010; Q9968